=== PATIENT | female | born 1965 | race Caucasian/White ===

== ENCOUNTER 2021-02-21 09:24 | Emergency (ER) | payer OTHER ==
[~2021-02-21] VITALS: Ht 160 cm; Wt 99.8 kg
[2021-02-21] MEDS ORDERED: LISINOPRIL20 MG PO ×2 (09:43→10:08)
[2021-02-21 10:15] VITALS: BP 146/79
== END 2021-02-21 10:15 | disposition home or self-care (01) ==
LOC: M.ERS 09:24
DX: I10 Essential (primary) hypertension (principal); Z76.0 Encounter for issue of repeat prescription